=== PATIENT | male | born 1990 | race Hispanic/Latino ===

== ENCOUNTER 2024-09-18 12:35 | Outpatient (CLI) | payer OTHER | END 2024-09-18 12:36 | disposition home or self-care (01) | LOC: CSHWCC 12:35 | PROVIDERS: ATTEND Nurse Practitioner Family | DX: E11.622 Type 2 diabetes mellitus with other skin ulcer (principal); L97.122 Non-pressure chronic ulcer of left thigh with fat layer exposed; E66.01 Morbid (severe) obesity due to excess calories; Z89.612 Acquired absence of left leg above knee | CPT/HCPCS: 11042; 99213; G0463 ==

== ENCOUNTER 2024-09-25 14:34 | Outpatient (CLI) | payer OTHER | END 2024-09-25 14:35 | disposition home or self-care (01) | LOC: CSHWCC 14:34 | PROVIDERS: ATTEND Nurse Practitioner Family | DX: E11.622 Type 2 diabetes mellitus with other skin ulcer (principal); L97.122 Non-pressure chronic ulcer of left thigh with fat layer exposed; E66.01 Morbid (severe) obesity due to excess calories; Z89.612 Acquired absence of left leg above knee | CPT/HCPCS: 11042 ==